=== PATIENT | male | born 1970 | race Caucasian/White ===

== ENCOUNTER 2018-12-11 15:48 | Inpatient (IN) | payer OTHER ==
[~2018-12-11] VITALS: Ht 167.6 cm; Wt 78.0 kg
[2018-12-11 16:06] VITALS: BP 170/81
--- NOTE | 2018-12-11 16:10 | NUR ---
pt arrived to ed c/o llq pain that radiates to right x 9 days. rate yadira 10/10 and abd is soft round and tenderness on llq. vss. denies any nausea, vomitting, diarrhea. denies fever. nka.
--- NOTE | 2018-12-11 16:14 | NUR ---
PT TAKEN TO BED 8.
[2018-12-11] MEDS ORDERED: NACL 0.9% 1,000 ML IV SCH (16:24)
[2018-12-11] MEDS ORDERED: MORPHINE SULFATE 4 MG/ML SYR IVP ONE (16:25)
[2018-12-11] MEDS ORDERED: ONDANSETRON 4 MG/2 ML VIAL IVP ONE (16:25)
--- NOTE | 2018-12-11 17:03 | NUR ---
went to ct via wheelchair.
[2018-12-11 17:06] LABS: BASOPHILS % (AUTO) 0.6 % (0.0-2.0); EOSINOPHILS # (AUTO) 0.5 K/uL (0-0.4); EOSINOPHILS % (AUTO) 7.5 % (0.0-4.0); HEMATOCRIT 32.2 % (36-52); HEMOGLOBIN 10.8 g/dL (12.0-18.0); LYMPHOCYTES % (AUTO) 16.8 % (20.5-51.1); MEAN CORPUSCULAR HEMOGLOBIN 29 pg (27-31); MEAN CORPUSCULAR HGB CONC 34 g/dL (33-37); MEAN CORPUSCULAR VOLUME 85.2 fL (80-94); MONOCYTES # (AUTO) 0.6 K/uL (0.8-1.0); MONOCYTES % (AUTO) 9.4 % (1.7-9.3); NEUTROPHILS # (AUTO) 4.1 K/uL (1.8-7.7); NEUTROPHILS % (AUTO) 65.7 % (42.2-75.2); PLATELET COUNT (AUTO) 215 K/uL (140-450); RED BLOOD CELL COUNT(AUTO) 3.78 MIL/uL (4.20-6.10); RED CELL DISTRIBUTION WIDTH 12.9 % (11.6-13.7); WHITE BLOOD COUNT (AUTO) 6.2 K/uL (4.8-10.8)
--- NOTE | 2018-12-11 17:16 | NUR ---
Pt returned from CT and placed in bed 8.
[2018-12-11 17:23] LABS: ANION GAP 11.6 (8-16); CARBON DIOXIDE 26.4 mmol/L (21-32); CREATININE 1.5 mg/dL (0.7-1.3)
[2018-12-11 17:28] LABS: ALBUMIN 2.1 g/dL (3.4-5.0); TOTAL BILIRUBIN 0.2 mg/dL (0.0-1.0)
[2018-12-11 17:45] LABS: APPEARANCE,URINE CLEAR (CLEAR); BILIRUBIN,URINE NEGATIVE (NEGATIVE); BLOOD, URINE 2+ (NEGATIVE); COLOR,URINE YELLOW (YELLOW); LEUKOCYTE ESTERASE ,URINE NEGATIVE (NEGATIVE); NITRITE, URINE NEGATIVE (NEGATIVE); UGLUCOSE 2+ (NEGATIVE)
[2018-12-11 18:48] LABS: RBC,URINE 11-20 (MOD) /HPF (0-5); WBC,URINE NONE SEEN /HPF (0-5)
--- NOTE | 2018-12-11 18:49 | NUR ---
pt resting in bed, arousable to verbal stimuli.
[2018-12-11] MEDS ORDERED: HYDROcodone/APAP 7.5/325 MG 1 TAB PO PRN (19:10)
[2018-12-11] MEDS ORDERED: MORPHINE SULFATE 2 MG/ML SYR IVP PRN (19:10)
[2018-12-11] MEDS ORDERED: ACETAMINOPHEN 325 MG TAB PO PRN (19:10)
[2018-12-11] MEDS ORDERED: ONDANSETRON 4 MG/2 ML VIAL IM/IVP PRN (19:10)
--- NOTE | 2018-12-11 19:19 | NUR ---
BEDSIDE REPORT RECEIVED FROM MOOK ORELLANA. ASSUMED CARE AT THIS TIME. PT AWAKE AND ALERT AT THIS TIME. VSS. ALL NEEDS MET AT THIS TIME. WILL CONTINUE TO MONITOR.
--- NOTE | 2018-12-11 19:20 | NUR ---
Pt report given to hiral stoll. Transfer of care at this time.
[2018-12-11 19:50] LABS: BARBITURATE, URINE NEG. ng/ml (NEG <=200); BENZODIAZEPINE, URINE NEG. ng/mL (NEG <=200); CANNABINOID, URINE NEG. ng/mL (NEG <=50); COCAINE, URINE NEG. ng/mL (NEG <=300); OPIATE, URINE NEG. ng/mL (NEG <=2000); PHENCYCLIDINE SCREEN,URINE NEG. ng/mL (NEG <=25)
[2018-12-11 20:02] LABS: PROTHROMBIN TIME 9.6 secs (10.8-13.4)
[2018-12-11 20:03] LABS: CHOL/HDL RATIO 5.1 (1-4.5); FREE T4 (FREE THYROXINE) 0.98 ng/dL (0.76-1.46); MAGNESIUM 1.9 mg/dL (1.8-2.4); PHOSPHORUS 3.9 mg/dL (2.5-4.9); THYROID STIMULATING HORMONE 2.93 uIU/mL (0.34-3.74)
--- NOTE | 2018-12-11 20:06 | NUR ---
X-Ray at bedside.
--- NOTE | 2018-12-11 20:11 | NUR ---
Patient will be admitted to care of Dr. Marte. Admited to [facility]. Will go to room 120B. Belongings list completed. Report to MOOK Cespedes. Transfer of care at this time.
--- NOTE | 2018-12-11 20:20 | NUR ---
ADMITTED THIS 48 YEAR OLD MALE FROM ER PER JO WITH CC OF ABDOMINAL PAIN, AMBULATED TO BED WITH STEADY GAIT, ASSESSMENT DONE, AAOX4, VITAL SIGNS TAKEN, BP ELEVATED, DENIES CHEST PAIN OR ABDOMINAL PAIN BUT COMPLAINING OF BACK PAIN, WILL MEDICATE PRN, DR OLSON MADE AWARE OF ELEVATED BP, NO SOB AT THIS TIME, ORIENTED TO ROOM AND CALL LIGHT, PLAN OF CARE DISCUSSED, SAFETY MEASURES IN PLACE, CALL LIGHT WITHIN REACH.
[2018-12-11] MEDS ORDERED: [UNRECOGNIZED DRUG - CODE] PO (20:23)
[2018-12-11] MEDS ORDERED: ISOS30TA24 PO (20:23)
[2018-12-11] MEDS ORDERED: TRAM50TA1 PO (20:23)
[2018-12-11] MEDS ORDERED: CARV12.5 PO (20:23)
[2018-12-11] MEDS ORDERED: [UNRECOGNIZED DRUG - CODE] PO (20:23)
[2018-12-11] MEDS ORDERED: ATOR20TA PO (20:23)
[2018-12-11] MEDS ORDERED: DEXTROSE 50% 50 ML SYR IVP PRN (20:25)
[2018-12-11 20:30] VITALS: BP 197/93
[2018-12-11] MEDS: NACL 0.9% 1,000 ML IV SCH (20:42)
[2018-12-11] MEDS ORDERED: MAGNESIUM CITRATE 300 ML BTL PO SCH (21:00)
--- NOTE | 2018-12-11 21:00 | NUR ---
US KIDNEY DONE, BLOOD SUGAR CHECKED WITH 181 RESULT, COVERAGE GIVEN, SANDWICH PROVIDED, TOLERATED WELL, ALL NEEDS ATTENDED.
[2018-12-11] MEDS: amLODIPine 5 MG TAB PO SCH (21:30)
[2018-12-11] MEDS: INSULIN LISPRO SLIDING SCALE 100 UNITS/ML VIAL SUBQ PRN (21:36)
[2018-12-11] MEDS: BLOOD GLUCOSE MONITORING 1 DEV DEV FS SCH (21:38)
[2018-12-11] MEDS ORDERED: CARVEDILOL 12.5 MG TAB PO SCH (22:15)
--- NOTE | 2018-12-11 22:34 | NUR ---
MEDICATED WITH NORVASC AND COREG FOR ELEVATED BP, DENIES CHEST PAIN AT THIS TIME, NO SOB NOTED, MONITORED CLOSELY.
[2018-12-11] MEDS ORDERED: INFLUENZA VACCINE QUAD 0.5 ML SYR IMVAC PRN (22:35)
--- NOTE | 2018-12-11 23:40 | NUR ---
PT AWAKE WATCHING TV, VITAL SIGNS TAKEN, BP ELEVATED-175/92, DENIES CHEST PAIN BUT WITH TOLERABLE BACK PAIN, NO SOB NOTED, DR OLSON MADE AWARE, NO NEW ORDER, STATED TO MONITOR BP FOR NOW, IVF INFUSING WELL, PT CONTINUE DRINKING MAG CITRATE, MONITORED CLOSELY.
[2018-12-12] VITALS: BP 175/92
[2018-12-12] MEDS: traMADol 50 MG TAB PO PRN (03:03)
--- NOTE | 2018-12-12 03:05 | NUR ---
PT COMPLAINING OF BACK PAIN, OFFERED NORCO BUT STATED PREFER TRAMADOL, DR OLSON MADE AWARE, TRAMADOL PO GIVEN FOR BACK PAIN, MONITORED CLOSELY.
--- NOTE | 2018-12-12 03:50 | NUR ---
PT SEEN SITTING ON SIDE OF BED, STATED PAIN REDUCED, VITAL SIGNS TAKEN, BP STABLE AT 136/69, IVF INFUSING WELL, MONITORED CLOSELY.
[2018-12-12 04:00] VITALS: BP 136/69
--- NOTE | 2018-12-12 04:30 | NUR ---
PT AMBULATED TO BR, STATED UNABLE TO HAVE A BM EVEN AFTER MAG CITRATE, PRUNE JUICE PROVIDED, MONITORED CLOSELY.
[2018-12-12] MEDS: INSULIN LISPRO SLIDING SCALE 100 UNITS/ML VIAL SUBQ PRN ×4 (06:02→21:21)
[2018-12-12 06:18] LABS: BASOPHILS % (AUTO) 0.5 % (0.0-2.0); EOSINOPHILS # (AUTO) 0.6 K/uL (0-0.4); EOSINOPHILS % (AUTO) 8.3 % (0.0-4.0); HEMATOCRIT 33.3 % (36-52); HEMOGLOBIN 11.1 g/dL (12.0-18.0); LYMPHOCYTES # (AUTO) 1.4 K/uL (2.0-11.5); LYMPHOCYTES % (AUTO) 21.1 % (20.5-51.1); MEAN CORPUSCULAR HEMOGLOBIN 29 pg (27-31); MEAN CORPUSCULAR HGB CONC 33 g/dL (33-37); MEAN CORPUSCULAR VOLUME 86.3 fL (80-94); MONOCYTES # (AUTO) 0.6 K/uL (0.8-1.0); MONOCYTES % (AUTO) 8.6 % (1.7-9.3); NEUTROPHILS # (AUTO) 4.2 K/uL (1.8-7.7); NEUTROPHILS % (AUTO) 61.5 % (42.2-75.2); PLATELET COUNT (AUTO) 220 K/uL (140-450); RED BLOOD CELL COUNT(AUTO) 3.85 MIL/uL (4.20-6.10); RED CELL DISTRIBUTION WIDTH 13.2 % (11.6-13.7); WHITE BLOOD COUNT (AUTO) 6.8 K/uL (4.8-10.8)
[2018-12-12] MEDS: KETOROLAC 15 MG/ML VIAL IVP PRN (06:19)
[2018-12-12] MEDS ORDERED: ALBUTEROL SULFATE/IPRATROPIU 3 ML SOL IH PRN (06:35)
[2018-12-12] MEDS: BLOOD GLUCOSE MONITORING 1 DEV DEV FS SCH ×4 (06:38→21:06)
[2018-12-12 06:43] LABS: ANION GAP 13.7 (8-16); CREATININE 1.6 mg/dL (0.7-1.3); POTASSIUM 4.7 mmol/L (3.5-5.1)
--- NOTE | 2018-12-12 07:15 | NUR ---
RECEIVED BEDSIDE REPORT FROM DAIRY TESTER NURSE ANAHI. PT IS AWAKE AND ALERT, NO S/S OF ACUTE DISTRESS OR SOB NOTED. PT IS ON ROOM AIR, SKIN IS INTACT. IV SITE NOTED ON THE L AC 20 G, INFUSING NS 10 ML/HR. CALL LIGHT IS WITHIN REACH. WILL CONTINUE MONITORING.
--- NOTE | 2018-12-12 07:22 | NUR ---
PT SLEEPING, NO SIGNS OF DISTRESS, REPORT GIVEN TO MOOK JEWELL FOR CONTINUITY OF CARE.
[2018-12-12 08:00] VITALS: BP 122/57
[2018-12-12] MEDS ORDERED: ISOSORBIDE DINITRATE 20 MG TAB PO SCH (09:00)
[2018-12-12] MEDS ORDERED: amLODIPine 5 MG TAB PO SCH (09:00)
[2018-12-12] MEDS ORDERED: AZITHROMYCIN 250 MG TAB PO SCH (09:00)
[2018-12-12] MEDS: amLODIPine 5 MG TAB PO SCH (09:00)
[2018-12-12] MEDS ORDERED: CARVEDILOL 12.5 MG TAB PO SCH ×2 (09:00)
--- NOTE | 2018-12-12 09:08 | NUR ---
PATIENT HAS BEEN SCREENED AND CATEGORIZED HIGH NUTRITION RISK. PATIENT WILL BE SEEN WITHIN 1-2 DAYS OF ADMISSION. 12/12/18-12/13/[address]
[2018-12-12] MEDS: DOCUSATE SODIUM 250 MG GELCAP PO SCH (09:50)
[2018-12-12] MEDS: SENNA 8.6 MG TAB PO SCH (09:53)
[2018-12-12] MEDS: ATORVASTATIN 20 MG TAB PO SCH (09:53)
--- NOTE | 2018-12-12 10:02 | NUR ---
AM MEDS ADMINISTERED, HELD THE ISOSORBIDE AND AMLODIPINE DUE TO PT'S BP 122/57. DR JONES IS AWARE.
--- NOTE | 2018-12-12 10:08 | NUR ---
PT SEEN BY DR REINOSO
--- NOTE | 2018-12-12 10:25 | NUR ---
I GAVE PT A SAMPLE CUP FOR SPUTUM SAMPLE, PER MD ORDER. PT SAYS THAT HE IS NOT ABLE TO PRODUCE ANY SPUTUM, BUT WILL TRY AND SEE IF HE CAN THROUGHOUT THE DAY.
[2018-12-12] MEDS ORDERED: ISOS60TE3 PO (10:31)
[2018-12-12] MEDS ORDERED: NIFEdipine 60 MG TABER PO SCH (10:51)
[2018-12-12] MEDS ORDERED: INSU100S22 SUBQ (11:04)
[2018-12-12] MEDS ORDERED: INSULIN LANTUS 100 UNITS/ML 10 ML VIAL SUBQ SCH (11:12)
--- NOTE | 2018-12-12 11:32 | NUR ---
FAXED OVER REQUEST FOR MEDICAL RECORDS TO [facility], FOR PT'S HOSPITALIZATION THERE THIS MONTH, PER MD ORDER.
[2018-12-12 12:00] VITALS: BP 147/61
--- NOTE | 2018-12-12 14:42 | NUR ---
12/12/18 RD INITIAL ASSESSMENT COMPLETED PLEASE REFER TO NUTRITION ASSESSMENT UNDER CARE ACTIVITY FOR ESTIMATED NUTRITIONAL NEEDS. 1. RECOMMEND RENAL, CCHO DIET 2. NUTRITION EDUCATION DM-II WAS GIVEN TO PT. 3. RD TO FOLLOW-UP 3-5 DAYS, MODERATE RISK KRISS BEE, RD
--- NOTE | 2018-12-12 15:45 | NUR ---
RECEIVED FAX FROM [facility] WITH PT'S MEDICAL RECORD. GIVEN TO DR JONES.
[2018-12-12 16:00] VITALS: BP 141/75
--- NOTE | 2018-12-12 19:25 | NUR ---
PT ENDORSED TO HEALTH INFORMATION PROVIDER NURSE IN STABLE CONDITION.
--- NOTE | 2018-12-12 19:30 | NUR ---
RECEIVED REPORT FROM MICHEL DELVALLE. PT LELO, OSEAS AT BEDSIDE. NAD NOTED.
[2018-12-12 20:40] VITALS: BP 127/63
[2018-12-12] MEDS: CARVEDILOL 12.5 MG TAB PO SCH (21:06)
[2018-12-12] MEDS: NACL 0.9% 1,000 ML IV SCH (21:08)
--- NOTE | 2018-12-12 23:45 | NUR ---
MED PASS DONE. SHIFT ASSESSMENT COMPLETED. PT TEACHING DONE ON LIFESTYLE CHANGES NEEDED, RE: ARTHUR, FAM AT BEDSIDE, ALL VERBALIZED UNDERSTANDING AND ASKED QUESTIONS.
[2018-12-13] VITALS: BP 142/69
[2018-12-13] MEDS: KETOROLAC 15 MG/ML VIAL IVP PRN (02:31)
[2018-12-13] MEDS: traMADol 50 MG TAB PO PRN (02:41)
--- NOTE | 2018-12-13 03:20 | NUR ---
MEDICATED FOR PAIN W/ TORADOL 15MG IVP, PAIN REMAINED UNRELIEVED AT 10/10. TRAMADOL 50 MG PO FOR BREAKTHROUGH PAIN. PT IN BED RESTING QUIETLY, STATES HE FEELS A LITTLE BETTER. WILL CONT TO MONITOR.
--- NOTE | 2018-12-13 04:30 | NUR ---
VS DONE WNL. PAIN RELIEVED 0/10. PT RETURNED BACK TO SLEEP.
[2018-12-13] MEDS: BLOOD GLUCOSE MONITORING 1 DEV DEV FS SCH ×4 (05:52→20:15)
[2018-12-13 06:32] LABS: BASOPHILS % (AUTO) 0.5 % (0.0-2.0); EOSINOPHILS # (AUTO) 0.5 K/uL (0-0.4); EOSINOPHILS % (AUTO) 8.6 % (0.0-4.0); HEMOGLOBIN 9.7 g/dL (12.0-18.0); LYMPHOCYTES # (AUTO) 1.2 K/uL (2.0-11.5); LYMPHOCYTES % (AUTO) 20.3 % (20.5-51.1); MEAN CORPUSCULAR HEMOGLOBIN 29 pg (27-31); MEAN CORPUSCULAR HGB CONC 33 g/dL (33-37); MEAN CORPUSCULAR VOLUME 85.6 fL (80-94); MONOCYTES # (AUTO) 0.4 K/uL (0.8-1.0); MONOCYTES % (AUTO) 6.9 % (1.7-9.3); NEUTROPHILS # (AUTO) 3.6 K/uL (1.8-7.7); NEUTROPHILS % (AUTO) 63.7 % (42.2-75.2); PLATELET COUNT (AUTO) 197 K/uL (140-450); RED BLOOD CELL COUNT(AUTO) 3.39 MIL/uL (4.20-6.10); WHITE BLOOD COUNT (AUTO) 5.7 K/uL (4.8-10.8)
[2018-12-13 07:06] VITALS: BP 109/58
--- NOTE | 2018-12-13 07:10 | NUR ---
REPORT TO AM RN. PT ASLEEP, VOICES NO C/O PAIN OR DISCOMFORT.
--- NOTE | 2018-12-13 07:15 | NUR ---
RECEIVED REPORT FROM TRANSIT PLANNING MANAGER NURSE, PT IS ASLEEP, NO S/S OF ACUTE DISTRESS, NO SOB. PT ON ROOM AIR. SKIN INTACT. IV SITE IS NOTED ON THE L AC 20 G, INFUSING NS 10 ML/HR. CALL LIGHT IS WITHIN REACH.
[2018-12-13 08:00] VITALS: BP 128/65
[2018-12-13 08:03] LABS: ANION GAP 12.8 (8-16); CARBON DIOXIDE 24.2 mmol/L (21-32); CREATININE 1.6 mg/dL (0.7-1.3)
[2018-12-13 08:07] LABS: MAGNESIUM 2.4 mg/dL (1.8-2.4); PHOSPHORUS 4.4 mg/dL (2.5-4.9)
[2018-12-13] MEDS ORDERED: AZITHROMYCIN 250 MG TAB PO SCH (09:00)
[2018-12-13] MEDS ORDERED: INSULIN LANTUS 100 UNITS/ML 10 ML VIAL SUBQ SCH (09:00)
[2018-12-13] MEDS: DOCUSATE SODIUM 250 MG GELCAP PO SCH (09:43)
[2018-12-13] MEDS: SENNA 8.6 MG TAB PO SCH (09:43)
[2018-12-13] MEDS: CARVEDILOL 12.5 MG TAB PO SCH ×2 (09:44→21:00)
[2018-12-13] MEDS: ATORVASTATIN 20 MG TAB PO SCH (09:44)
[2018-12-13] MEDS: ISOSORBIDE MONONITRATE 30 MG TABER PO SCH (09:44)
[2018-12-13] MEDS: NIFEdipine 60 MG TABER PO SCH (09:45)
--- NOTE | 2018-12-13 11:29 | NUR ---
PT'S BLOOD GLUCOSE IS 208 AT THIS TIME. PT GOT 7 UNITS OF LANTUS THIS MORNING. PT STATES THAT HE IS CONSISTENTLY GIVEN FOODS THAT ARE HIGH IN SUGAR FOR ALL HIS MEALS. PT IS CURRENTLY ON A RENAL DIET. I SPOKE TO DR SALDAÑA AND ASKED IF HE MAY WANT TO SWITCH HIM TO A CCHO DIET.
[2018-12-13] MEDS: INSULIN LISPRO SLIDING SCALE 100 UNITS/ML VIAL SUBQ PRN ×3 (11:49→20:20)
[2018-12-13 12:00] VITALS: BP 121/62
--- NOTE | 2018-12-13 13:32 | NUR ---
PT AMBULATING IN THE HALLWAY PER MD ESPINAL
[2018-12-13 16:00] VITALS: BP 124/66
[2018-12-13] MEDS: NACL 0.9% 1,000 ML IV SCH (19:08)
--- NOTE | 2018-12-13 19:30 | NUR ---
PT ENDORSED TO ROD DRAWER IN STABLE CONDITION
[2018-12-13 20:00] VITALS: BP 94/46
--- NOTE | 2018-12-13 20:10 | NUR ---
Daughter at bed side. Expressing concern that pt is not getting enough medical attention from the nurses from the previous shifts and may want to transfer pt to a different hospital if not resolved. Charge nurse made aware and spoke to daughter. MD made aware and says she will go over patient's chart and will follow up with daughter.
--- NOTE | 2018-12-13 20:15 | NUR ---
Pt has a blood glucose of 209 at this time. Pt given 4 units of humalog insulin on left upper arm.
--- NOTE | 2018-12-13 20:31 | NUR ---
Received bedside report from AM nurse. Pt is sitting on chair. No SOB or respiratory distress noted. Pt is ambulatory. AOx4. IV access on Left AC 20 gauge patent and intact. Skin is intact. Bed is at low position. Call light within patient reach. Will continue to monitor patient. Addendum: 12/13/18 at 2210 by Mercedes Rodríguez RN Time is 1930
--- NOTE | 2018-12-13 22:30 | NUR ---
Rounds done. Pt in bed asleep. No signs of SOB or distress noted. Visible chest rise and fall noted. Will continue to monitor.
--- NOTE | 2018-12-14 00:10 | NUR ---
Vital signs taken at this time. Pt sleeping in bed comfortably. Visible chest rise and fall noted. Will continue to monitor pt.
[2018-12-14] MEDS: traMADol 50 MG TAB PO PRN (01:24)
--- NOTE | 2018-12-14 01:24 | NUR ---
TRAMADOL GIVEN FOR 4/10 PAIN. PT TOLERATED WELL. PT SAID, "WHY DO YOU GUYS ONLY GIVE MEDICATION AFTER MIDNIGHT WHEN I AM IN PAIN?" TOLD PATIENT THAT WE WILL NOT GIVEN HIM MEDICATION UNLESS HE ASKS FOR IT. IT IS AN NEEDED MEDICATION AND NOT SCHEDULED.
[2018-12-14] MEDS: MORPHINE SULFATE 2 MG/ML SYR IVP SCH ×2 (04:00→04:13)
--- NOTE | 2018-12-14 04:12 | NUR ---
WENT INTO PATIENT'S ROOM BECAUSE HIS LIGHT WAS ON. PATIENT WAS ABOUT TO CALL HIS DAUGHTER. ASKED HIM WHAT WAS WRONG. HE SAID HE HAS BEEN WAITING SINCE 035 FOR PAIN MEDICATION. I EXPLAINED TO HIM THAT I HAD TO SPEAK WITH THE DOCTOR REGARDING HIS MEDICATION BECAUSE HE HAD ALREADY RECEIVED TRAMADOL AT 0125 AND THE FREQUENCY WAS TID. HE WOULD NOT BE ABLE TO RECEIVE HIS MEDICATION FOR ANOTHER 5 HOURS AND 30 MINUTES. BUT I HAD MORPHINE READY FOR HIM. AFTER DRAWING UP THE MORPHINE THE PATIENT ASKS WHICH MEDICATION IT WAS. I EXPLAINED TO HIM THAT IT WAS MORPHINE AND PATIENT REFUSED MEDICATION AFTER IT ALREADY HAD BEEN DRAWN UP. HE SAID THE MORPHINE MAKES HIM FEEL DROWSY BUT DOES NOT TAKE AWAY THE PAIN. I ASKED HIM WHICH MEDICATION WOULD HE PREFER. HE SAID TRAMADOL. I EXPLAINED TO HIM THAT I HAD ALREADY GIVEN THAT MEDICATION TO HIM AT 0125 AND IT WOULD NOT BE READY FOR ANOTHER 5 AND A HALF HOURS. I ASKED HIM IF HE WANTED ME TO ASK THE DOCTOR TO SWITCH IT TO NORCO. PT REFUSED AND SAID HE WOULD WAIT UNTIL IT WAS DUE. I SPOKE WITH DR. FORTUNE AND SHE INCREASED HIS DOSE TO 100MG PO TID PRN FOR PAIN AND ORDERED A 1 TIME DOSE OF 50MG PO NOW.
[2018-12-14] MEDS ORDERED: traMADol 50 MG TAB PO PRN (04:25)
[2018-12-14] MEDS ORDERED: traMADol 50 MG TAB PO SCH (04:35)
--- NOTE | 2018-12-14 04:38 | NUR ---
WENT IN TO GIVE PATIENT TRAMADOL 50MG ONE TIME ORDER FROM MD. PATIENT DID NOT WANT TO TAKE IT UNTIL 0500.
--- NOTE | 2018-12-14 05:00 | NUR ---
TRAMADOL GIVEN FOR 6/10 BACK PAIN. PT TOLERATED WELL.
[2018-12-14] MEDS: BLOOD GLUCOSE MONITORING 1 DEV DEV FS SCH ×2 (06:26→11:30)
--- NOTE | 2018-12-14 06:26 | NUR ---
BS 167. 2 UNITS OF HUMALOG GIVEN.
[2018-12-14] MEDS: INSULIN LISPRO SLIDING SCALE 100 UNITS/ML VIAL SUBQ PRN ×2 (06:28→12:56)
--- NOTE | 2018-12-14 07:27 | NUR ---
RECEIVED REPORT FROM PARTS ROOM ASSOCIATE NURSE PATIENT LYING DOWN IN BED SLEEPING, AROUSABLE BY VOICE. NO DISTRESS NOTED. DENIES ANY PAIN AT THIS TIME. AAOX4, CALM, COOPERATIVE, SKIN COLOR APPROPRIATE TO ETHNICITY, WARM TO TOUCH. SKIN INTACT. IV SITE INTACT, PATENT, AND INFUSING IVF PER MD ORDERS. RESPIRATIONS EVEN, UNLABORED, ON ROOM AIR. REVIEWED PLAN OF CARE WITH PATIENT. REVIEWED PLAN OF CARE WITH PATIENT. PATIENT VERBALIZED UNDERSTANDING. SAFETY MEASURES IN PLACE, CALL LIGHT WITHIN REACH. WILL CONTINUE TO MONITOR.
[2018-12-14] MEDS ORDERED: INSULIN LANTUS 100 UNITS/ML 10 ML VIAL SUBQ SCH ×3 (07:30→09:00)
[2018-12-14 07:40] LABS: BASOPHILS % (AUTO) 0.7 % (0.0-2.0); EOSINOPHILS # (AUTO) 0.5 K/uL (0-0.4); EOSINOPHILS % (AUTO) 8.5 % (0.0-4.0); HEMATOCRIT 29.7 % (36-52); HEMOGLOBIN 9.9 g/dL (12.0-18.0); LYMPHOCYTES # (AUTO) 1.3 K/uL (2.0-11.5); LYMPHOCYTES % (AUTO) 20.4 % (20.5-51.1); MEAN CORPUSCULAR HEMOGLOBIN 29 pg (27-31); MEAN CORPUSCULAR HGB CONC 33 g/dL (33-37); MEAN CORPUSCULAR VOLUME 85.8 fL (80-94); MONOCYTES # (AUTO) 0.5 K/uL (0.8-1.0); MONOCYTES % (AUTO) 7.2 % (1.7-9.3); NEUTROPHILS % (AUTO) 63.2 % (42.2-75.2); PLATELET COUNT (AUTO) 229 K/uL (140-450); RED BLOOD CELL COUNT(AUTO) 3.46 MIL/uL (4.20-6.10); RED CELL DISTRIBUTION WIDTH 13.2 % (11.6-13.7); WHITE BLOOD COUNT (AUTO) 6.3 K/uL (4.8-10.8)
[2018-12-14 08:00] VITALS: BP 135/64
[2018-12-14 08:01] LABS: ANION GAP 12.7 (8-16); CREATININE 1.8 mg/dL (0.7-1.3); POTASSIUM 4.7 mmol/L (3.5-5.1)
[2018-12-14 08:08] LABS: MAGNESIUM 2.7 mg/dL (1.8-2.4); PHOSPHORUS 4.9 mg/dL (2.5-4.9)
[2018-12-14] MEDS ORDERED: FUROSEMIDE 20 MG TAB PO SCH (09:00)
[2018-12-14] MEDS: NIFEdipine 60 MG TABER PO SCH (10:01)
[2018-12-14] MEDS: ATORVASTATIN 20 MG TAB PO SCH (10:02)
[2018-12-14] MEDS: CARVEDILOL 12.5 MG TAB PO SCH (10:02)
[2018-12-14] MEDS: DOCUSATE SODIUM 250 MG GELCAP PO SCH (10:03)
[2018-12-14] MEDS: ISOSORBIDE MONONITRATE 30 MG TABER PO SCH (10:03)
[2018-12-14] MEDS: SENNA 8.6 MG TAB PO SCH (10:03)
--- NOTE | 2018-12-14 10:10 | NUR ---
PATIENT WALKING AROUND RUST HALLWAYS WITH STEADY GAIT. SCHEDULED MEDICATIONS DUE GIVEN AT BEDSIDE. NO DISTRESS NOTED. PAIN WITHIN TOLERABLE. WILL CONTINUE TO MONITOR.
--- NOTE | 2018-12-14 13:01 | NUR ---
PATIENT SITTING DOWN IN BED, DAUGHTER AT BEDSIDE. WISHES TO LEAVE AMA DUE TO FEELING THAT HE IS NOT BEING TREATED THIS HOSPITAL. DAUGHTER AND PATIENT WANTS TO LEAVE AMA TO GO TO ANOTHER HOSPITAL. NOTIFIED DR. SALDAÑA. DR. SALDAÑA TO TALK TO PATIENT/DAUGHTER AT BEDSIDE.
[2018-12-14 13:48] VITALS: BP 119/65
[2018-12-14] MEDS ORDERED: FURO20TA8 PO (13:53)
[2018-12-14] MEDS ORDERED: INSU100S22 SUBQ (13:53)
[2018-12-14] MEDS ORDERED: TRAM50TA3 PO (13:53)
[2018-12-14] MEDS ORDERED: NIFE60TE74 PO ×2 (13:53→14:10)
[2018-12-14] MEDS ORDERED: GLUC-805 FS (14:07)
--- NOTE | 2018-12-14 14:09 | NUR ---
PATIENT REFUSED FLU VACCINE UPON DISCHARGE
[2018-12-14] MEDS ORDERED: [UNRECOGNIZED DRUG - CODE] PO (14:15)
[2018-12-14] MEDS ORDERED: CARV12.5 PO (14:16)
--- NOTE | 2018-12-14 14:50 | NUR ---
DISCHARGE INSTRUCTIONS PROVIDED TO PATIENT/FAMILY AT BEDSIDE IN [place], OFFERED TRANSLATION PHONE, BUT PATIENT PREFERS DAUGHTER AT BEDSIDE TO TRANSLATE. INSTRUCTIONS ON FOLLOW-UP VISIT WITH PCP WITHIN 2 WEEKS, NEW/PRESCRIBED MEDICATIONS, DIET REGIMEN, BLOOD GLUCOSE CONTROL, CHECK BP DAILY, AND DIET REGIMEN. ANSWERED ALL OF PATIENT/FAMILY QUESTIONS REGARDING DISCHARGE. PATIENT/FAMILY VERBALIZED COMPLETE UNDERSTANDING. IV SITE REMOVED WITH MINIMAL BLOOD AND LUMEN COMPLETELY INTACT. ID BANDS REMOVED. ESCORTED PATIENT DOWN TO LOBBY VIA STEADY AMBULATION, REFUSED WHEELCHAIR. PATIENT DISCHARGED TO HOME AT THIS TIME IN PRIVATE VEHICLE IN STABLE CONDITION.
[2018-12-15 15:17] LABS: HEPATITIS A ANTIBODY IGM Negative (Negative); HEPATITIS B CORE AB TOTAL Negative (Negative); HEPATITIS B SURFACE ANTIBODY Non Reactive (.); HEPATITIS B SURFACE ANTIGEN Negative (Negative)
== END 2018-12-14 14:50 | disposition home or self-care (01) | DRG 682 ==
LOC: MED 15:48 → MTU 19:08
PROVIDERS: ADMIT General Practice; ATTEND General Practice
DX: N17.0 Acute kidney failure with tubular necrosis (principal); E43 Unspecified severe protein-calorie malnutrition; J18.9 Pneumonia, unspecified organism; I50.43 Acute on chronic combined systolic (congestive) and diastolic (congestive) heart failure; I31.3 Pericardial effusion (noninflammatory); I13.0 Hypertensive heart and chronic kidney disease with heart failure and stage 1 through stage 4 chronic kidney disease, or unspecified chronic kidney disease; E11.40 Type 2 diabetes mellitus with diabetic neuropathy, unspecified; K59.09 Other constipation; E11.65 Type 2 diabetes mellitus with hyperglycemia; E78.5 Hyperlipidemia, unspecified; N18.3 Chronic kidney disease, stage 3 (moderate); D63.8 Anemia in other chronic diseases classified elsewhere; E11.22 Type 2 diabetes mellitus with diabetic chronic kidney disease; Z68.27 Body mass index [BMI] 27.0-27.9, adult; Z83.3 Family history of diabetes mellitus
CPT/HCPCS: 36415; 71045; 76705; 76770; 80048; 80053; 80305; 81001; 82550; 82948; 83036; 83605; 83690; 83735; 83880; 84100; 84439; 84443; 85025; 85610; 85730; 86704; 86706; 86708; 86709; 86803; 87040; 87081; 87340; 94640; 96361; 96374; 96375; 99285; J0696; J1815; J1885; J2270; J2405; J7030; J7060; J7620; Q0092